=== PATIENT | male | born 1985 | race Caucasian/White ===

== ENCOUNTER 2022-03-03 10:23 | Emergency (ER) | payer MEDICAID ==
[~2022-03-03] VITALS: Ht 172.7 cm; Wt 86.4 kg
[2022-03-03] MEDS ORDERED: IBUP-1493 PO (10:25)
[2022-03-03] MEDS ORDERED: OXYC-38 PO (12:29)
[2022-03-03 12:40] VITALS: BP 131/73
== END 2022-03-03 13:09 | disposition home or self-care (01) ==
LOC: EMS 10:26
DX: K08.89 Other specified disorders of teeth and supporting structures (principal)
CPT/HCPCS: 99283; Z7502